=== PATIENT | male | born 1980 | race Caucasian/White ===

== ENCOUNTER 2018-04-26 06:58 | Emergency (ER) | payer MEDICAID ==
[~2018-04-26] VITALS: Ht 188 cm; Wt 118.8 kg
[2018-04-26 07:18] VITALS: BP_SYST 144
[2018-04-26] MEDS ORDERED: IBUPROFEN 600 MG TABLET PO ONE (07:45)
[2018-04-26 08:24] VITALS: BP_SYST 137
== END 2018-04-26 08:24 | disposition home or self-care (01) ==
LOC: SED 06:58
DX: S93.401A Sprain of unspecified ligament of right ankle, initial encounter (principal); J45.909 Unspecified asthma, uncomplicated; I10 Essential (primary) hypertension; X58.XXXA Exposure to other specified factors, initial encounter; Y93.89 Activity, other specified; Y92.89 Other specified places as the place of occurrence of the external cause; Y99.8 Other external cause status
CPT/HCPCS: 73590-TC; 99284

== ENCOUNTER 2018-06-03 18:35 | Emergency (ER) | payer MEDICAID ==
[~2018-06-03] VITALS: Ht 188 cm; Wt 117.9 kg
[2018-06-03 19:08] VITALS: BP_SYST 156
[2018-06-03 21:29] VITALS: BP_SYST 135
== END 2018-06-03 21:29 | disposition home or self-care (01) ==
LOC: SED 18:35
DX: A63.0 Anogenital (venereal) warts (principal); J45.909 Unspecified asthma, uncomplicated; I10 Essential (primary) hypertension; F17.200 Nicotine dependence, unspecified, uncomplicated; K64.9 Unspecified hemorrhoids; Z71.6 Tobacco abuse counseling
CPT/HCPCS: 99283

== ENCOUNTER 2018-09-06 05:17 | Emergency (ER) | payer MEDICAID ==
[~2018-09-06] VITALS: Ht 188 cm; Wt 111.6 kg
--- NOTE | 2018-09-06 05:24 | NUR ---
Patient to ER bed 8 to gown for evaluation. Side rails up.
[2018-09-06 05:25] VITALS: BP_SYST 144
--- NOTE | 2018-09-06 05:29 | NUR ---
Pt complains of lower back pain that woke him up last night. Pt is unable to sleep. 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 Pt has hx back spasms. Pt denies N/V, fever, pain/burning upon urination. No other injuries/complaints per patient or noted.
--- NOTE | 2018-09-06 05:36 | NUR ---
ER Dr. Barahona at bedside examining patient.
[2018-09-06] MEDS ORDERED: traMADol HCL HCL 50 MG TABLET (ULTRAM) PO ONE (05:45)
[2018-09-06 06:20] VITALS: BP_SYST 132
--- NOTE | 2018-09-06 06:20 | NUR ---
Patient given written and verbal discharge instructions and verbalizes understanding. ER MD discussed with patient the results and treatment provided. Patient in stable condition. ID arm band removed. Rx of Motrin, Tramadol, and Robaxin given. Patient educated on pain management and to follow up with PMD. Pain Scale 0. Opportunity for questions provided and answered. Medication side effect fact sheet provided.
== END 2018-09-06 06:20 | disposition home or self-care (01) ==
LOC: SED 05:17
DX: S39.012A Strain of muscle, fascia and tendon of lower back, initial encounter (principal); J45.909 Unspecified asthma, uncomplicated; I10 Essential (primary) hypertension; F17.200 Nicotine dependence, unspecified, uncomplicated; X50.0XXA Overexertion from strenuous movement or load, initial encounter; Y93.89 Activity, other specified; Y92.89 Other specified places as the place of occurrence of the external cause; Y99.8 Other external cause status
CPT/HCPCS: 99283

== ENCOUNTER 2018-09-26 07:20 | Emergency (ER) | payer MEDICAID ==
[~2018-09-26] VITALS: Ht 188 cm; Wt 115.2 kg
[2018-09-26 07:20] VITALS: BP_SYST 154
[2018-09-26] MEDS ORDERED: KETOROLAC TROMETHAMINE 60 MG/2 ML VIAL IM ONE (08:00)
[2018-09-26 08:58] VITALS: BP_SYST 154
[2018-09-26 09:03] LABS: BILIRUBIN,URINE NEGATIVE (NEGATIVE); BLOOD, URINE NEGATIVE (NEGATIVE); CLARITY/URINE CLEAR (CLEAR); COLOR,URINE YELLOW (YELLOW); GLUCOSE,URINE NEGATIVE (NEGATIVE); KETONES,URINE NEGATIVE (NEGATIVE); LEUKOCYTE ESTERASE ,URINE NEGATIVE (NEGATIVE); NITRITE, URINE NEGATIVE (NEGATIVE); PH,URINE 5.5 (5.0-8.0); PROTEIN URINE NEGATIVE (NEGATIVE); UROBILINOGEN,URINE 0.2 (0.2-1.0)
== END 2018-09-26 08:58 | disposition home or self-care (01) ==
LOC: SED 07:20
DX: M54.5 Low back pain (principal); J45.909 Unspecified asthma, uncomplicated; I10 Essential (primary) hypertension
CPT/HCPCS: 74018; 81003; 96372; 99284; J1885

== ENCOUNTER 2019-02-17 07:04 | Emergency (ER) | payer MEDICAID ==
[~2019-02-17] VITALS: Ht 188 cm; Wt 117.0 kg
[2019-02-17 07:16] VITALS: BP_SYST 145
[2019-02-17] MEDS ORDERED: IBUPROFEN 800 MG TABLET PO ONE (07:45)
== END 2019-02-17 08:16 | disposition home or self-care (01) ==
LOC: SED 07:04
DX: K21.9 Gastro-esophageal reflux disease without esophagitis (principal); F17.200 Nicotine dependence, unspecified, uncomplicated; J45.909 Unspecified asthma, uncomplicated; I10 Essential (primary) hypertension
CPT/HCPCS: 99282; 99284

== ENCOUNTER 2019-04-27 19:15 | Emergency (ER) | payer MEDICAID ==
[~2019-04-27] VITALS: Ht 188 cm; Wt 113.4 kg
[2019-04-27 19:34] VITALS: BP_SYST 146
--- NOTE | 2019-04-27 19:43 | NUR ---
Pt ambulatory to bed 3 for evaluation
--- NOTE | 2019-04-27 20:00 | NUR ---
Patient brought in complaining of intermittent mid upper abdominal pain since 1300 today. Pain 8/10 sharp and cramping. Also complaining of nausea, vomiting and diarrhea with fever and chills. Patient also complains of left hand pain. No other complaints/injuries per patient or as noted. Will continue to monitor.
[2019-04-27] MEDS ORDERED: NACL 0.9% 1,000 ML IV ONE ×2 (20:11→22:25)
--- NOTE | 2019-04-27 20:13 | NUR ---
ER at bedside examining patient.
[2019-04-27] MEDS ORDERED: DIPHENHYDRAMINE INJ 50 MG/ML VIAL IVP ONE ×2 (20:15→22:30)
[2019-04-27] MEDS ORDERED: ONDANSETRON HCL 4 MG/2 ML VIAL IVP ONE (20:15)
[2019-04-27] MEDS ORDERED: MORPHINE 4 MG/ML INJ. SYRINGE IVP ONE ×2 (20:15→22:30)
--- NOTE | 2019-04-27 20:30 | NUR ---
# 18 gauge angiocath placed to rac. Use of asceptic technique. Opsite placed over site. Blood return noted. Blood for lab drawn from site. Flushed with 10 cc of normal saline. No evidence of infiltration noted. Patient tolerated well.
[2019-04-27 20:58] LABS: BASOPHILS % (AUTO) 0.1 % (0.0-2.0); CREATININE 1.1 mg/dL (0.55-1.30); EOSINOPHILS # (AUTO) 0.2 K/uL (0.0-0.4); EOSINOPHILS % (AUTO) 2.6 % (0.0-4.0); HEMATOCRIT 50.6 % (36-54); HEMOGLOBIN 17.6 g/dL (14.0-18.0); LYMPHOCYTES # (AUTO) 0.8 K/uL (1.0-5.5); LYMPHOCYTES % (AUTO) 10.4 % (20.5-51.5); MEAN CORPUSCULAR HEMOGLOBIN 32 pg (27-31); MEAN CORPUSCULAR HGB CONC 35 % (32-36); MEAN CORPUSCULAR VOLUME 92 fL (79.0-98.0); MONOCYTES # (AUTO) 0.5 K/uL (0.0-1.0); MONOCYTES % (AUTO) 6.1 % (1.7-9.3); NEUTROPHILS # (AUTO) 6.6 K/uL (1.8-7.7); NEUTROPHILS % (AUTO) 80.8 % (40.0-70.0); PLATELET COUNT (AUTO) 143 K/uL (130-430); POTASSIUM 3.6 mmol/L (3.5-5.1); RED CELL DISTRIBUTION WIDTH 13.1 % (9.0-15.0); WHITE BLOOD COUNT (AUTO) 8.1 K/uL (4.8-10.8)
[2019-04-27 21:03] LABS: TOTAL BILIRUBIN 1.3 mg/dL (0.0-1.0)
[2019-04-27 21:06] LABS: BILIRUBIN,URINE NEGATIVE (NEGATIVE); BLOOD, URINE NEGATIVE (NEGATIVE); CLARITY/URINE CLEAR (CLEAR); COLOR,URINE YELLOW (YELLOW); GLUCOSE,URINE NEGATIVE (NEGATIVE); KETONES,URINE NEGATIVE (NEGATIVE); LEUKOCYTE ESTERASE ,URINE NEGATIVE (NEGATIVE); NITRITE, URINE NEGATIVE (NEGATIVE); PROTEIN URINE 1+ (NEGATIVE)
[2019-04-27 21:27] LABS: BACTERIA,URINE FEW /HPF (None Seen); MUCUS,URINE 1+ /LPF (None Seen); RBC,URINE NONE SEEN /HPF (0-3); WBC,URINE 0-3 /HPF (0-3)
--- NOTE | 2019-04-27 22:10 | NUR ---
Patient's temporal temperature is 103.0. MD notified. Tylenol ordered.
[2019-04-27] MEDS ORDERED: ACETAMINOPHEN 325 MG TABLET PO ONE (22:15)
[2019-04-27] MEDS ORDERED: CIPROFLOXACIN HCL 500 MG TABLET PO ONE (22:30)
--- NOTE | 2019-04-27 23:28 | NUR ---
temporal temperature is now 100.9. md notified. Patient reports feeling better.
[2019-04-28 00:59] VITALS: BP_SYST 118
--- NOTE | 2019-04-28 00:59 | NUR ---
Patient given written and verbal discharge instructions and verbalizes understanding. ER MD Engel discussed with patient the results and treatment provided. Patient in stable condition. ID arm band removed. IV catheter removed intact and dressing applied, no active bleeding. Rx of Couch and Bactim given. Patient educated on pain management and to follow up with PMD in 2-3 days. Pain Scale 0/10 Opportunity for questions provided and answered. Medication side effect fact sheet provided.
== END 2019-04-28 00:59 | disposition home or self-care (01) ==
LOC: SED 19:15
DX: R19.7 Diarrhea, unspecified (principal); R50.9 Fever, unspecified; F17.210 Nicotine dependence, cigarettes, uncomplicated; J45.909 Unspecified asthma, uncomplicated; I10 Essential (primary) hypertension
CPT/HCPCS: 36415; 73130; 80053; 81000; 83690; 85025; 89055; 96361; 96374; 96375; 96376; 99284; J1200; J2270; J2405; J7030

== ENCOUNTER 2019-06-16 05:31 | Emergency (ER) | payer MEDICAID ==
[~2019-06-16] VITALS: Ht 188 cm; Wt 110.7 kg
[2019-06-16 05:36] VITALS: BP_SYST 147
[2019-06-16] MEDS ORDERED: MAG HYDROX/AL HYDROX/SIMETH 30 ML, DICYCLOMINE HCL 20 MG, LIDOCAINE VISCOUS 2% 15ML (PO... PO ONE ×3 (06:30)
[2019-06-16] MEDS ORDERED: KETOROLAC TROMETHAMINE 30 MG VIAL IM ONE (06:30)
[2019-06-16 07:10] LABS: BASOPHILS % (AUTO) 0.5 % (0.0-2.0); EOSINOPHILS # (AUTO) 0.3 K/uL (0.0-0.4); EOSINOPHILS % (AUTO) 3.6 % (0.0-4.0); HEMATOCRIT 47.4 % (36-54); HEMOGLOBIN 17.2 g/dL (14.0-18.0); LYMPHOCYTES % (AUTO) 36.1 % (20.5-51.5); MEAN CORPUSCULAR HEMOGLOBIN 33 pg (27-31); MEAN CORPUSCULAR HGB CONC 36 % (32-36); MEAN CORPUSCULAR VOLUME 92 fL (79.0-98.0); MONOCYTES # (AUTO) 0.7 K/uL (0.0-1.0); MONOCYTES % (AUTO) 8.3 % (1.7-9.3); NEUTROPHILS # (AUTO) 4.2 K/uL (1.8-7.7); NEUTROPHILS % (AUTO) 51.5 % (40.0-70.0); PLATELET COUNT (AUTO) 144 K/uL (130-430); RED BLOOD CELL COUNT(AUTO) 5.16 MIL/uL (4.2-6.2); WHITE BLOOD COUNT (AUTO) 8.2 K/uL (4.8-10.8)
[2019-06-16 07:40] LABS: ANION GAP 15 (5-15); CALCIUM 8.8 mg/dL (8.4-11.0); CHLORIDE 106 mmol/L (98-107); CREATININE 1.15 mg/dL (0.55-1.30); SODIUM SERUM 140 mmol/L (136-145); UREA NITROGEN, BLOOD 15 mg/dL (8-21)
[2019-06-16 07:41] LABS: GFR AFRICAN AMERICAN 93 mL/min (>90); GLUCOSE 135 mg/dL (70-99)
[2019-06-16 07:51] LABS: ALBUMIN 3.5 g/dL (3.4-4.8); LIPASE 177 U/L (73-393); TOTAL BILIRUBIN 0.3 mg/dL (0.0-1.0)
[2019-06-16 08:08] VITALS: BP_SYST 138
[2019-06-16 08:19] LABS: ALANINE AMINOTRANSFERASE 41 U/L (12-78); ASPARTATE AMINOTRANSFERASE 25 U/L (10-37)
== END 2019-06-16 08:08 | disposition home or self-care (01) ==
LOC: SED 05:31
DX: R07.89 Other chest pain (principal); J45.909 Unspecified asthma, uncomplicated; I10 Essential (primary) hypertension; F17.200 Nicotine dependence, unspecified, uncomplicated
CPT/HCPCS: 36415; 71045; 80053; 83690; 84484; 85025; 93005; 96372; 99284; J1885; J2001

== ENCOUNTER 2019-08-09 04:53 | Emergency (ER) | payer MEDICAID ==
[~2019-08-09] VITALS: Ht 188 cm; Wt 113.4 kg
[2019-08-09 05:00] VITALS: BP_SYST 144
[2019-08-09] MEDS ORDERED: IPRATROPIUM BROM 0.5 MG/2.5 ML VIAL.NEB (ATROVENT) INH ONE (06:00)
[2019-08-09] MEDS ORDERED: IBUPROFEN 800 MG TABLET PO ONE (06:00)
[2019-08-09] MEDS ORDERED: LevALBUTEROL HCL 1.25 MG/0.5 ML *CONC.* VIAL.NEB (XOPENEX CONC.) INH ONE (06:00)
[2019-08-09] MEDS ORDERED: AMOXICILLIN 500 MG CAPSULE PO ONE (06:30)
[2019-08-09] MEDS ORDERED: PREDNISONE 20 MG TABLET PO ONE (06:30)
[2019-08-09 06:57] VITALS: BP_SYST 134
== END 2019-08-09 06:57 | disposition home or self-care (01) ==
LOC: SED 04:53
DX: J45.901 Unspecified asthma with (acute) exacerbation (principal); F17.290 Nicotine dependence, other tobacco product, uncomplicated; Z71.6 Tobacco abuse counseling
CPT/HCPCS: 71045; 94640; 99284; J7512; J7612

== ENCOUNTER 2019-08-12 09:14 | Emergency (ER) | payer MEDICAID ==
[~2019-08-12] VITALS: Ht 188 cm; Wt 113.4 kg
--- NOTE | 2019-08-12 09:20 | NUR ---
Patient to ER bed 03 to gown for evaluation. Side rails up.
[2019-08-12 09:23] VITALS: BP_SYST 135
--- NOTE | 2019-08-12 09:26 | NUR ---
Patient presented to ER C/O difficulty breathing. Patient A&OX4, afebrile, ambulatory to ER, skin pink and warm, cough, nasal congestion, pain 05/19, denies N/V/D. Patient states he has coldwith cough, was seen in [facility] ER Saturday for same symptoms, today pain increased with "right lung pain".
[2019-08-12] MEDS ORDERED: LEVOFLOXACIN 500 MG/D5W 100 ML IV ONE (09:45)
[2019-08-12] MEDS ORDERED: methylPREDNISolone SOD SUCC/PF 62.5 MG/ML VIAL IVP ONE (09:45)
--- NOTE | 2019-08-12 09:45 | NUR ---
Dr Sotelo at bedside examining patient
[2019-08-12] MEDS ORDERED: IPRATROPIUM/ALBUTEROL SULFATE 3 ML AMPUL.NEB (DUONEB) INH ONE (10:30)
[2019-08-12 12:23] VITALS: BP_SYST 128
--- NOTE | 2019-08-12 12:23 | NUR ---
Patient given written and verbal discharge instructions and verbalizes understanding. ER MD discussed with patient the results and treatment provided. Patient in stable condition. ID arm band removed. Rx of Albuterol, levaquin and Medrol given. Patient educated on pain management and to follow up with PMD. Pain Scale 2/10 tolerable for pt. Opportunity for questions provided and answered. Medication side effect fact sheet provided.
== END 2019-08-12 12:23 | disposition home or self-care (01) ==
LOC: SED 09:14
DX: J45.909 Unspecified asthma, uncomplicated (principal); I10 Essential (primary) hypertension; K64.9 Unspecified hemorrhoids
CPT/HCPCS: 36415; 71045; 87040; 93005; 94640; 96365; 96375; 99284; J1956; J2930; J7620; 99283

== ENCOUNTER 2020-03-03 08:23 | Emergency (ER) | payer MEDICAID ==
[~2020-03-03] VITALS: Ht 188 cm; Wt 102.1 kg
[2020-03-03 08:23] VITALS: BP_SYST 145
--- NOTE | 2020-03-03 08:23 | NUR ---
BROUGHT BACK TO BED #3 AND TRIAGED. REPORT GIVEN TO MYA
--- NOTE | 2020-03-03 08:28 | NUR ---
Patient presented to ER C/O asthma. Patient ambulatory to ER, afebrile, skin pink & warm, denies N/V/D, pain 5/10. Patient placed on pulse-ox monitor upon arrival with saturation at 98%. Patient states he has wheezing and chest tightnes x1 week.
--- NOTE | 2020-03-03 08:31 | NUR ---
DR EARL AT BEDSIDE FOR EVALUATION
[2020-03-03] MEDS ORDERED: PREDNISONE 20 MG TABLET PO ONE (08:45)
[2020-03-03 09:20] VITALS: BP_SYST 143
--- NOTE | 2020-03-03 09:20 | NUR ---
Patient given written and verbal discharge instructions and verbalizes understanding. ER MD discussed with patient the results and treatment provided. Patient in stable condition. ID arm band removed. Rx of azythromycin, prednisone, albuterol given. Patient educated on pain management and to follow up with PMD. Pain Scale 3/10 . Opportunity for questions provided and answered. Medication side effect fact sheet provided.
== END 2020-03-03 09:20 | disposition home or self-care (01) ==
LOC: SED 08:23
DX: J45.901 Unspecified asthma with (acute) exacerbation (principal); I10 Essential (primary) hypertension
CPT/HCPCS: 99283; J7512

== ENCOUNTER 2020-06-14 15:27 | Emergency (ER) | payer MEDICAID ==
[~2020-06-14] VITALS: Ht 188 cm; Wt 109.8 kg
[2020-06-14 16:00] VITALS: BP_SYST 126
[2020-06-14] MEDS ORDERED: IBUPROFEN 800 MG TABLET PO ONE (16:30)
[2020-06-14 17:11] VITALS: BP_SYST 118
== END 2020-06-14 17:11 | disposition home or self-care (01) ==
LOC: SED 15:27
DX: M25.561 Pain in right knee (principal); J45.909 Unspecified asthma, uncomplicated; I10 Essential (primary) hypertension; F17.200 Nicotine dependence, unspecified, uncomplicated; Z71.6 Tobacco abuse counseling
CPT/HCPCS: 73564; 99283

== ENCOUNTER 2020-07-28 07:36 | Emergency (ER) | payer MEDICAID ==
[~2020-07-28] VITALS: Ht 188 cm; Wt 113.4 kg
[2020-07-28 07:36] VITALS: BP_SYST 150
--- NOTE | 2020-07-28 07:36 | NUR ---
BROUGHT BACK TO BED #5 AND TRIAGED. REPORT GIVEN TO MAO
--- NOTE | 2020-07-28 07:51 | NUR ---
39 y/o male presents to Er w/ c/o llq abd pain on/off for past several days, noted to have green color bms and noted small amt of blood in feces as well (h/o hemorrhoids), last bm this a.m. but small amt but had to force to evacuate. patient abd tender to touch w/ mild rebound tenderness. Introduced self to patient, positioned for comfort and safety w/ bed to low position sr up, continue to monitor.
--- NOTE | 2020-07-28 08:04 | NUR ---
ER at bedside examining patient.
[2020-07-28] MEDS ORDERED: KETOROLAC TROMETHAMINE 60 MG/2 ML VIAL IM ONE ×2 (08:30→08:51)
--- NOTE | 2020-07-28 08:43 | NUR ---
patient medicated as ordered. Will observe for any adverse reaction. bed to low position sr up, continue to monitor.
--- NOTE | 2020-07-28 09:23 | NUR ---
Patient given aci and rx verbalized understanding of f/u care and taking of rx medications. patient also given excuse from work sheet.
--- NOTE | 2020-07-28 09:24 | NUR ---
Patient given written and verbal discharge instructions and verbalizes understanding. ER MD discussed with patient the results and treatment provided. Patient in stable condition. ID arm band removed. IV catheter removed intact and dressing applied, no active bleeding. Rx of [motrin 800mg] given. Patient educated on pain management and to follow up with PMD. Pain Scale []. Opportunity for questions provided and answered. Medication side effect fact sheet provided.
[2020-07-28 09:28] VITALS: BP_SYST 144
== END 2020-07-28 09:24 | disposition home or self-care (01) ==
LOC: SED 07:36
DX: R10.32 Left lower quadrant pain (principal); J45.909 Unspecified asthma, uncomplicated
CPT/HCPCS: 96372; 99283; J1885

== ENCOUNTER 2020-09-27 07:56 | Emergency (ER) | payer MEDICAID ==
[~2020-09-27] VITALS: Ht 188 cm; Wt 117.9 kg
[2020-09-27 08:19] VITALS: BP_SYST 131
[2020-09-27] MEDS ORDERED: KETOROLAC TROMETHAMINE 60 MG/2 ML VIAL IM ONE ×2 (08:56→09:00)
[2020-09-27 09:50] VITALS: BP_SYST 137
== END 2020-09-27 09:50 | disposition home or self-care (01) ==
LOC: SED 07:56
DX: M62.838 Other muscle spasm (principal); I10 Essential (primary) hypertension; J45.909 Unspecified asthma, uncomplicated; F17.200 Nicotine dependence, unspecified, uncomplicated
CPT/HCPCS: 72125; 76376; 96372; 99284; J1885

== ENCOUNTER 2020-10-25 07:07 | Emergency (ER) | payer MEDICAID, SELFPAY ==
[~2020-10-25] VITALS: Ht 188 cm; Wt 108.9 kg
[2020-10-25 07:26] VITALS: BP_SYST 154
[2020-10-25] MEDS: NS 500 ML IV ONE (08:05)
[2020-10-25] MEDS: KETOROLAC TROMETHAMINE 30 MG VIAL IVP ONE (08:05)
[2020-10-25] MEDS: DIPHENOXYLATE HCL/ATROP SULF 2.5 MG TAB PO ONE (08:06)
[2020-10-25 10:10] VITALS: BP_SYST 154
== END 2020-10-25 10:10 | disposition home or self-care (01) ==
LOC: SED 07:07
DX: A08.4 Viral intestinal infection, unspecified (principal); Z20.822 Contact with and (suspected) exposure to COVID-19
CPT/HCPCS: 36415; 87426; 96374; 99283; J1885; J7040

== ENCOUNTER 2021-11-15 11:24 | Emergency (ER) | payer MEDICAID, SELFPAY ==
[~2021-11-15] VITALS: Ht 190.5 cm; Wt 113.4 kg
[2021-11-15 11:30] VITALS: BP_SYST 156
[2021-11-15] MEDS ORDERED: ALBUTEROL SULFATE 0.083% 2.5 MG/3 ML VIAL.NEB INH ONE (11:45)
[2021-11-15] MEDS ORDERED: DEXAMETHASONE SOD PHOSPHATE 10 MG/ML VIAL IM ONE (11:45)
[2021-11-15] MEDS ORDERED: Tessalon Perles PO (13:21)
[2021-11-15] MEDS ORDERED: ALBMDI INH (13:29)
[2021-11-15 13:40] VITALS: BP_SYST 151
== END 2021-11-15 13:41 | disposition home or self-care (01) ==
LOC: SED 11:24
DX: J45.901 Unspecified asthma with (acute) exacerbation (principal); Z20.822 Contact with and (suspected) exposure to COVID-19
CPT/HCPCS: 87426; 94640; 96372; 99283; J1100; J7613; 36415

== ENCOUNTER 2022-07-20 08:53 | Emergency (ER) | payer MEDICAID ==
[~2022-07-20] VITALS: Ht 185.4 cm; Wt 99.8 kg
[~2022-07-20 08:53] MED LIST: ALBMDI INH; Tessalon Perles PO
[2022-07-20 09:23] VITALS: BP_SYST 142
[2022-07-20] MEDS ORDERED: NACL 0.9% 2,000 ML IV ONE (09:30)
[2022-07-20 09:59] LABS: BASOPHILS % (AUTO) 0.4 % (0.0-2.0); EOSINOPHILS # (AUTO) 0.2 K/uL (0.0-0.4); EOSINOPHILS % (AUTO) 3.1 % (0.0-4.0); HEMATOCRIT 46.1 % (36-54); HEMOGLOBIN 16.2 g/dL (14.0-18.0); MEAN CORPUSCULAR HEMOGLOBIN 31 pg (27-31); MEAN CORPUSCULAR HGB CONC 35 % (32-36); MEAN CORPUSCULAR VOLUME 89 fL (79.0-98.0); MONOCYTES # (AUTO) 0.7 K/uL (0.0-1.0); MONOCYTES % (AUTO) 8.7 % (1.7-9.3); NEUTROPHILS # (AUTO) 4.9 K/uL (1.8-7.7); NEUTROPHILS % (AUTO) 61.8 % (40.0-70.0); PLATELET COUNT (AUTO) 154 K/uL (130-430); RED BLOOD CELL COUNT(AUTO) 5.17 MIL/uL (4.2-6.2); RED CELL DISTRIBUTION WIDTH 12.3 % (9.0-15.0); WHITE BLOOD COUNT (AUTO) 7.9 K/uL (4.8-10.8)
[2022-07-20] MEDS ORDERED: INSULIN Lispro 100 UNITS/ML, 3 ML VIAL (humaLOG) SUBCUT ONE (10:15)
[2022-07-20 10:34] LABS: BILIRUBIN,URINE NEGATIVE (NEGATIVE); BLOOD, URINE NEGATIVE (NEGATIVE); CLARITY/URINE CLEAR (CLEAR); COLOR,URINE YELLOW (YELLOW); GLUCOSE,URINE 3+ (NEGATIVE); KETONES,URINE 1+ (NEGATIVE); LEUKOCYTE ESTERASE ,URINE NEGATIVE (NEGATIVE); NITRITE, URINE NEGATIVE (NEGATIVE); PROTEIN URINE TRACE (NEGATIVE); UROBILINOGEN,URINE 0.2 (0.2-1.0)
[2022-07-20 10:38] LABS: ALBUMIN 3.6 g/dL (3.4-4.8); CALCIUM 9.1 mg/dL (8.4-11.0); CREATININE 1.05 mg/dL (0.55-1.30); TOTAL BILIRUBIN 1.2 mg/dL (0.0-1.0)
[2022-07-20 10:42] LABS: BACTERIA,URINE RARE /HPF (None Seen); RBC,URINE NONE SEEN /HPF (0-3); WBC,URINE 0-3 /HPF (0-3)
[2022-07-20] MEDS ORDERED: KETOROLAC TROMETHAMINE 15 MG VIAL IVP ONE (11:15)
[2022-07-20] MEDS ORDERED: Nystatin PO (13:03)
[2022-07-20] MEDS ORDERED: METF-379 PO (13:03)
[2022-07-20] MEDS ORDERED: ALBMDI INH (13:03)
[2022-07-20] MEDS ORDERED: GUAI100S14 PO (13:03)
[2022-07-20 13:40] VITALS: BP_SYST 142
== END 2022-07-20 13:43 | disposition home or self-care (01) ==
LOC: SED 08:53
DX: E11.65 Type 2 diabetes mellitus with hyperglycemia (principal); R73.9 Hyperglycemia, unspecified; B37.0 Candidal stomatitis; R35.0 Frequency of micturition; R53.83 Other fatigue; R25.2 Cramp and spasm; J45.909 Unspecified asthma, uncomplicated; Z79.899 Other long term (current) drug therapy
CPT/HCPCS: 99284; 96374; 96361; 80053; 81000; 82962; 85025; 36415; 96372; J1885; J7030

== ENCOUNTER 2023-03-15 07:46 | Emergency (ER) | payer MEDICAID ==
[~2023-03-15] VITALS: Ht 190.5 cm; Wt 112.0 kg
[2023-03-15 07:46] VITALS: BP_SYST 130; PULSE 89; RESP 19; TEMP 98.1; O2SAT 98
[~2023-03-15 07:46] MED LIST changes: +GUAI100S14 PO; +METF-379 PO; +Nystatin PO
[2023-03-15] MEDS ORDERED: NACL 0.9% 1,000 ML IV ONE (08:15)
[2023-03-15 09:09] LABS: BASOPHILS % (AUTO) 0.3 % (0.0-2.0); EOSINOPHILS # (AUTO) 0.1 K/uL (0.0-0.4); HEMATOCRIT 50.8 % (36-54); HEMOGLOBIN 17.1 g/dL (14.0-18.0); LYMPHOCYTES # (AUTO) 1.5 K/uL (1.0-5.5); LYMPHOCYTES % (AUTO) 16.7 % (20.5-51.5); MEAN CORPUSCULAR HEMOGLOBIN 31 pg (27-31); MEAN CORPUSCULAR HGB CONC 34 % (32-36); MEAN CORPUSCULAR VOLUME 92 fL (79.0-98.0); MONOCYTES % (AUTO) 10.9 % (1.7-9.3); NEUTROPHILS # (AUTO) 6.3 K/uL (1.8-7.7); NEUTROPHILS % (AUTO) 71.1 % (40.0-70.0); PLATELET COUNT (AUTO) 148 K/uL (130-430); RED BLOOD CELL COUNT(AUTO) 5.55 MIL/uL (4.2-6.2); RED CELL DISTRIBUTION WIDTH 13.5 % (9.0-15.0); WHITE BLOOD COUNT (AUTO) 8.8 K/uL (4.8-10.8)
[2023-03-15 09:25] LABS: CALCIUM 8.3 mg/dL (8.4-11.0); CREATININE 0.92 mg/dL (0.55-1.30)
[2023-03-15 09:29] LABS: ALBUMIN 3.4 g/dL (3.4-4.8); TOTAL BILIRUBIN 0.8 mg/dL (0.0-1.0)
[2023-03-15 10:01] LABS: BILIRUBIN,URINE NEGATIVE (NEGATIVE); BLOOD, URINE NEGATIVE (NEGATIVE); CLARITY/URINE CLEAR (CLEAR); COLOR,URINE YELLOW (YELLOW); GLUCOSE,URINE NEGATIVE (NEGATIVE); KETONES,URINE NEGATIVE (NEGATIVE); LEUKOCYTE ESTERASE ,URINE NEGATIVE (NEGATIVE); NITRITE, URINE NEGATIVE (NEGATIVE); PH,URINE 5.5 (5.0-8.0); PROTEIN URINE TRACE (NEGATIVE); UROBILINOGEN,URINE 0.2 (0.2-1.0)
[2023-03-15 11:00] VITALS: BP_SYST 130; PULSE 89; RESP 19; TEMP 99.8; O2SAT 98
== END 2023-03-15 11:00 | disposition home or self-care (01) ==
LOC: SED 07:46
DX: A08.4 Viral intestinal infection, unspecified (principal); R19.7 Diarrhea, unspecified; R50.9 Fever, unspecified; M79.10 Myalgia, unspecified site; J45.909 Unspecified asthma, uncomplicated; E11.9 Type 2 diabetes mellitus without complications; I10 Essential (primary) hypertension; Z79.899 Other long term (current) drug therapy; Z20.822 Contact with and (suspected) exposure to COVID-19
CPT/HCPCS: 99283; 96360; 87426; 80053; 82550; 85025; 36415; 81003; 87804 ×2; J7030

== ENCOUNTER 2024-04-01 21:32 | Emergency (ER) | payer MEDICAID ==
[~2024-04-01] VITALS: Ht 188 cm; Wt 103.0 kg
[~2024-04-01 21:32] MED LIST changes: +ALBU2.5V7 INH; +OSEL75CA PO; +PRED20TA PO
[2024-04-01 21:50] VITALS: BP_SYST 136; PULSE 76; RESP 18; TEMP 98; O2SAT 97
[2024-04-01] MEDS: KETOROLAC TROMETHAMINE 60 MG/2 ML VIAL IM ONE (22:14)
[2024-04-01] MEDS ORDERED: COLC0.6C3 PO (23:15)
[2024-04-01] MEDS ORDERED: INDO-12 PO (23:15)
[2024-04-01 23:25] VITALS: BP_SYST 136; PULSE 76; RESP 18; TEMP 98; O2SAT 97
== END 2024-04-01 23:25 | disposition home or self-care (01) ==
LOC: SED 21:32
DX: M10.9 Gout, unspecified (principal); J45.909 Unspecified asthma, uncomplicated; E11.9 Type 2 diabetes mellitus without complications; I10 Essential (primary) hypertension; Z79.899 Other long term (current) drug therapy; Z79.2 Long term (current) use of antibiotics
CPT/HCPCS: 99283; 96372; J1885